=== PATIENT | male | born 1970 | race Caucasian/White ===

== ENCOUNTER 2017-03-06 09:52 | Emergency (ER) | payer BC ==
--- NOTE | ~2017-03-06 | US85 ---
[facility]. [facility] A Service [facility] RADIOLOGY TEXT RESULTS PATIENT: PAT DAVID LOCATION: SED : 70 UNIT #: [id number] AGE: [address]: Elizabeth Booth PAC SEX: M ORDER DR: [id number] [place] [id number] MR#: [id number] Acc #: [id number] NAME: PAT DAVID : 1970 SEX: M STUDY DATE/TIME: 03/06/2017 12:41 UNIT: SED ROOM: STUDY DESCRIPTION: [facility] or [facility] Attending Physician: Elizabeth Booth Pa-C Ordering Physician: Elizabeth Booth Pa-C Primary Care Physician: Darleen Fritz M.D. MEDICAL IMAGING REPORT This report is preliminary unless electronic signature is present. EXAM Right lower extremity venous ultrasound HISTORY Went on vacation x1 week. Right foot pain. No history of DVT. Not currently taking blood thinners. TECHNIQUE Venous ultrasound examination of the right lower extremity was performed using grayscale, spectral Doppler and color flow Doppler imaging. FINDINGS The examination is negative. There is no evidence of right lower extremity deep venous thrombus from the groin to the lower calf. Visualized greater saphenous vein is also patent. IMPRESSION Negative examination. No evidence of right lower extremity deep venous thrombosis. Dictated by... Kieran Norman M.D. THIS IS AN ELECTRONICALLY VERIFIED REPORT Kieran Norman M.D. at 03/07/2017 5:40 PM DASIA/humza TD: 03/06/2017 21:00 JOB #: [id number] [facility] A Service [facility] RADIOLOGY TEXT RESULTS PATIENT: PAT DAVID LOCATION: SED : [birth year] UNIT #: [id number] AGE: [address]: Elizabeth Booth PAC SEX: M ORDER DR: MEDICAL IMAGING REPORT Page 1 of 1
--- NOTE | ~2017-03-06 | CR127 ---
[facility]. [facility] A Service of [facility] RADIOLOGY TEXT RESULTS PATIENT: PAT DAVID LOCATION: SED : [birth year] UNIT #: [id number] AGE: [address]: Elizabeth Booth SEX: M ORDER DR: [id number] [place] [id number] E MR#: [id number] Acc #: [id number] NAME: PAT DAVID : 1970 SEX: M STUDY DATE/TIME: 03/06/2017 10:23 UNIT: SED ROOM: STUDY DESCRIPTION: CR Foot Complete Min 3 View Rt Attending Physician: Elizabeth Booth Pa-C Ordering Physician: Elizabeth Booth Pa-C Primary Care Physician: Darleen Fritz M.D. MEDICAL IMAGING REPORT This report is preliminary unless electronic signature is present. EXAM Three views right foot INDICATION Pain in the right foot for 5 days. It has been getting worse. No known injury. FINDINGS No acute fracture or subluxation of the right foot is identified. The patient really has minimal degenerative change. There is some enthesopathic change seen along the plantar aspect of the calcaneus. No aggressive osseous abnormalities are seen. I do not see any focal soft tissue abnormalities. IMPRESSION No acute disease. Dictated by... Irina Burger M.D. THIS IS AN ELECTRONICALLY VERIFIED REPORT Irina Burger M.D. at 03/07/2017 5:00 PM AKI/kurt TD: 03/06/2017 16:19 JOB #: [id number] MEDICAL IMAGING REPORT Page 1 of 1
[2017-03-06] MEDS ORDERED: LEVOXYL PO (10:00)
[2017-03-06] MEDS ORDERED: DIAZEPAM PO (10:00)
[2017-03-06] MEDS ORDERED: OXYCODONE 10MG PO (10:00)
[2017-03-06] MEDS ORDERED: LISINOPRIL PO (10:01)
[2017-03-06] MEDS ORDERED: METOPROLOL PO (10:01)
[2017-03-06] MEDS ORDERED: ETODOLAC PO (10:01)
[2017-03-06] MEDS ORDERED: PROTONIX20 MG PO (10:02)
[2017-03-06] MEDS ORDERED: TESTERONE (10:02)
== END 2017-03-06 14:01 | disposition home or self-care (01) ==
LOC: SED 09:52
DX: M79.671 Pain in right foot (principal); I10 Essential (primary) hypertension; K21.9 Gastro-esophageal reflux disease without esophagitis; Z88.1 Allergy status to other antibiotic agents; Z79.899 Other long term (current) drug therapy
CPT/HCPCS: 73630; 93971; 99284